=== PATIENT | male | born 1960 | race Caucasian/White ===

== ENCOUNTER 2019-03-27 10:22 | Inpatient (IN) | payer OTHER ==
[~2019-03-27] VITALS: Ht 180.3 cm; Wt 114.0 kg
[2019-03-27 10:37] VITALS: Ht 180.3 cm; Wt 114.0 kg
[2019-03-27 11:29] LABS: PLATELET COUNT 213 x10^3mcL (130-400); RED CELL DISTRIBUTION WIDTH 12.8 % (11.5-14.5)
[2019-03-27 11:42] LABS: CALCIUM 8.8 mg/dL (8.5-10.1); CARBON DIOXIDE 24.9 mmol/L (21-32); CHLORIDE SERUM 100 mmol/L (98-107); CREATININE SERUM 1.2 mg/dL (0.7-1.3); GFR1 > 60 mL/min; GLUCOSE SERUM 116 mg/dL (74-106); POTASSIUM SERUM 3.7 mmol/L (3.5-5.1); SODIUM SERUM 133 mmol/L (136-145)
[2019-03-27 11:45] LABS: ALBUMIN 3.7 g/dL (3.4-5.0); ALKALINE PHOSPHATASE 58 U/L (46-116); ALT/SGPT 35 U/L (16-63); AST/SGOT 12 U/L (15-37); BILIRUBIN TOTAL 1.6 mg/dL (0.20-1.00); MAGNESIUM 1.8 mg/dL (1.8-2.4); TOTAL PROTEIN, SERUM 7.6 g/dL (6.4-8.2)
[2019-03-27 12:42] LABS: UA SPECIFIC GRAVITY 1.015 (1.005-1.035); microscopic required? YES; urine erythrocyte TRACE (NEGATIVE)
[2019-03-27 12:53] LABS: BAND NEUTROPHIL 2 % (0-10); SEGMENTED NEUTROPHILS 83 % (37-75)
[2019-03-27 12:54] LABS: MONOCYTE 8 % (0-7); rbc morphology (normal/abnorm) NORMAL (NORMAL)
[2019-03-27 15:10] LABS: CHOLESTEROL/HDL RATIO 3.5
[2019-03-27 15:22] VITALS: BP 111/68
[2019-03-27 20:42] VITALS: BP 100/61
[2019-03-28 05:32] VITALS: BP 105/54
[2019-03-28 06:22] LABS: CALCIUM 8.2 mg/dL (8.5-10.1); CARBON DIOXIDE 25.3 mmol/L (21-32); CHLORIDE SERUM 104 mmol/L (98-107); CREATININE SERUM 1.1 mg/dL (0.7-1.3); GFR1 > 60 mL/min; GLUCOSE SERUM 122 mg/dL (74-106); PHOSPHOROUS 1.9 mg/dL (2.5-4.9); POTASSIUM SERUM 3.7 mmol/L (3.5-5.1); SODIUM SERUM 136 mmol/L (136-145)
[2019-03-28 06:49] LABS: BASOPHIL % 0.1 % (0-2); PLATELET COUNT 174 x10^3mcL (130-400); RED CELL DISTRIBUTION WIDTH 13.2 % (11.5-14.5)
[2019-03-28 08:00] VITALS: BP 105/51
[2019-03-28 12:27] VITALS: BP 108/60
[2019-03-28 17:03] VITALS: BP 101/46
[2019-03-28 19:52] VITALS: BP 96/51
[2019-03-29 05:14] VITALS: BP 115/55
[2019-03-29 06:26] LABS: PLATELET COUNT 164 x10^3mcL (130-400)
[2019-03-29 06:38] LABS: BASOPHIL % 0 % (0-2)
[2019-03-29 06:59] LABS: CALCIUM 7.7 mg/dL (8.5-10.1); CARBON DIOXIDE 25.3 mmol/L (21-32); CHLORIDE SERUM 105 mmol/L (98-107); CREATININE SERUM 1.2 mg/dL (0.7-1.3); GFR1 > 60 mL/min; GLUCOSE SERUM 120 mg/dL (74-106); MAGNESIUM 1.9 mg/dL (1.8-2.4); PHOSPHOROUS 1.6 mg/dL (2.5-4.9); POTASSIUM SERUM 3.8 mmol/L (3.5-5.1); SODIUM SERUM 139 mmol/L (136-145)
[2019-03-29 07:35] VITALS: BP 125/48
[2019-03-29 12:07] VITALS: BP 121/54
[2019-03-29] MEDS ORDERED: LEVOFLOXACIN500 M1 PO (14:13)
[2019-03-29] MEDS ORDERED: IBUPROFEN400 MG PO (14:37)
[2019-03-29] MEDS ORDERED: PROS5 PO (16:07)
[2019-03-29] MEDS ORDERED: FLO4 PO (16:07)
[2019-03-29 16:36] VITALS: BP 107/44
== END 2019-03-29 18:08 | disposition home or self-care (01) | DRG 872 ==
LOC: ED 10:22 → DU 14:06 → MU 14:06 → DU 15:25
PROVIDERS: Emergency Medicine; ADMIT Family Medicine
DX: A41.9 Sepsis, unspecified organism (principal); N10 Acute pyelonephritis; E87.1 Hypo-osmolality and hyponatremia; K57.90 Diverticulosis of intestine, part unspecified, without perforation or abscess without bleeding; F17.210 Nicotine dependence, cigarettes, uncomplicated; N40.0 Benign prostatic hyperplasia without lower urinary tract symptoms; K21.9 Gastro-esophageal reflux disease without esophagitis; R73.9 Hyperglycemia, unspecified; E83.51 Hypocalcemia; E83.39 Other disorders of phosphorus metabolism
CPT/HCPCS: 83880; G0378; J0696; J1885; J2405; J7030; J7060